=== PATIENT | male | born 1960 | race Caucasian/White ===

== ENCOUNTER 2017-08-01 08:08 | Emergency (ER) | payer OTHER ==
[~2017-08-01] VITALS: Ht 175.3 cm; Wt 77.1 kg
--- NOTE | ~2017-08-01 | CR132 ---
[facility]. [facility] A Service of [facility] & [facility] RADIOLOGY TEXT RESULTS PATIENT: MARIS BATISTA III LOCATION: SED : 62 UNIT #: [id number] AGE: [address]: Andrey Gonzalez MD SEX: M ORDER DR: [id number] [address] [address] [id number] E MR#: [id number] Acc #: [id number] NAME: MARIS BATISTA III : 1960 SEX: M STUDY DATE/TIME: 08/01/2017 9:26 UNIT: SED ROOM: STUDY DESCRIPTION: CR Forearm 2 View Lt Attending Physician: Andrey Gonzalez M.D. Ordering Physician: Andrey Gonzalez M.D. Primary Care Physician: Ren Zafar M.D. MEDICAL IMAGING REPORT This report is preliminary unless electronic signature is present. EXAM Left forearm. INDICATIONS Left forearm pain after fall from ladder today. FINDINGS Two views of the left forearm were obtained. There is a comminuted fracture involving the distal 2 cm of the radius and there is an ulnar styloid fracture. Otherwise, the bones are normal. IMPRESSION 1. Comminuted distal radius fracture. 2. Ulnar styloid fracture. Dictated by... Jonathna Butler M.D. THIS IS AN ELECTRONICALLY VERIFIED REPORT Jonathan Butler M.D. at 08/01/2017 3:38 PM FEL/jose TD: 08/01/2017 15:22 JOB #: [id number] MEDICAL IMAGING REPORT Page 1 of 1
--- NOTE | ~2017-08-01 | CR281 ---
[facility]. [facility] A Service of [facility] & [facility] RADIOLOGY TEXT RESULTS PATIENT: MARIS BATISTA III LOCATION: SED : 62 UNIT #: [id number] AGE: [address]: Andrey Gonzalez MD SEX: M ORDER DR: [id number] [address] [address] [id number] E MR#: [id number] Acc #: [id number] NAME: MARIS BATISTA III : 1960 SEX: M STUDY DATE/TIME: 08/01/2017 9:26 UNIT: SED ROOM: STUDY DESCRIPTION: CR Wrist Min 3 View Lt Attending Physician: Andrey Gonzalez M.D. Ordering Physician: Andrey Gonzalez M.D. Primary Care Physician: Ren Zafar M.D. MEDICAL IMAGING REPORT This report is preliminary unless electronic signature is present. EXAM Left wrist HISTORY Left wrist pain after fall from ladder today. FINDINGS 3 views of the left wrist were obtained. There is a comminuted fracture involving the distal 2 cm of the radius, and there is an ulnar styloid fracture. The bones are otherwise normal. IMPRESSION Comminuted distal radius fracture and ulnar styloid fracture. Dictated by... Jonathan Butler M.D. THIS IS AN ELECTRONICALLY VERIFIED REPORT Jonathan Butler M.D. at 08/01/2017 3:38 PM ARTUR/linda TD: 08/01/2017 15:26 JOB #: [id number] MEDICAL IMAGING REPORT Page 1 of 1
--- NOTE | ~2017-08-01 | CR93 ---
[facility]. [facility] A Service of [facility] & [facility] RADIOLOGY TEXT RESULTS PATIENT: MARIS BATISTA III LOCATION: SED : 62 UNIT #: [id number] AGE: [address]: Andrey Gonzalez MD SEX: M ORDER DR: [id number] [address] [address] [id number] E MR#: [id number] Acc #: [id number] NAME: MARIS BATISTA III : 1960 SEX: M STUDY DATE/TIME: 08/01/2017 9:26 UNIT: SED ROOM: STUDY DESCRIPTION: CR Elbow Min 3 Views Lt Attending Physician: Andrey Gonzalez M.D. Ordering Physician: Andrey Gonzalez M.D. Primary Care Physician: Ren Zafar M.D. MEDICAL IMAGING REPORT This report is preliminary unless electronic signature is present. EXAM Left elbow. HISTORY Left elbow pain after falling off ladder yesterday. FINDINGS AP and lateral examination of the elbow shows satisfactory articulation of the humerus with the proximal radius and ulna. There is no identifiable fracture, dislocation, joint effusion, or radiopaque foreign body in the soft tissues. IMPRESSION Normal elbow. Dictated by... Jonathan Butler M.D. THIS IS AN ELECTRONICALLY VERIFIED REPORT Jonathan Butler M.D. at 08/01/2017 3:38 PM ARTUR/linda TD: 08/01/2017 15:19 JOB #: [id number] MEDICAL IMAGING REPORT Page 1 of 1
--- NOTE | ~2017-08-01 | CT52 ---
[facility] A Service [facility] RADIOLOGY TEXT RESULTS PATIENT: MARIS BATISTA III LOCATION: SED : 62 UNIT #: [id number] AGE: [address]: Andrey Gonzalez MD SEX: M ORDER DR: [id number] [place] [id number] E MR#: [id number] Acc #: [id number] NAME: MARIS BATISTA III : 1960 SEX: M STUDY DATE/TIME: 08/01/2017 9:23 UNIT: SED ROOM: STUDY DESCRIPTION: CT Cervical Spine Wo Cont Attending Physician: Andrey Gonzalez M.D. Ordering Physician: Andrey Gonzalez M.D. Primary Care Physician: Ren Zafar M.D. MEDICAL IMAGING REPORT This report is preliminary unless electronic signature is present. EXAM CT cervical spine 08/01/2017 HISTORY 56-year-old male in the ED after head injury. Fell off ladder striking head on concrete surface yesterday. TECHNIQUE Thin-section axial CT images were obtained from the skull base through the mid portion of T2. Sagittal and coronal images were reconstructed. The CT exam was performed with one or more of the following radiation dose reduction techniques: automatic exposure control, adjustment of mA and/or kV according to patient size, and iterative reconstruction. FINDINGS No fracture or other acute osseous abnormality is demonstrated. Severe multilevel degenerative facet arthropathy throughout the cervical spine, greatest on the right at C3-4 and C4-5. Slight anterolisthesis C4-5. Advanced degenerative disc space changes at C5-6 and C6-7 including disc space narrowing and vertebral osteophyte formation. More mild degenerative disc space narrowing elsewhere throughout the cervical spine. IMPRESSION 1. No acute osseous abnormality. 2. Severe multilevel degenerative facet arthropathy, greatest on the right at C3-4 and C4-5. Slight anterolisthesis C4-5. 3. Multilevel degenerative disc disease, greatest at C5-6 and C6-7. [facility] A Service [facility] RADIOLOGY TEXT RESULTS PATIENT: MARIS BATISTA III LOCATION: [facility] #: [id number] : 62 UNIT #: [id number] AGE: [address]: Andrey Gonzalez MD SEX: M ORDER DR: Dictated by... Norbert Queen M.D. THIS IS AN ELECTRONICALLY VERIFIED REPORT Norbert Queen M.D. at 08/01/2017 3:39 PM SIMONAW/jun TD: 08/01/2017 11:18 JOB #: [id number] MEDICAL IMAGING REPORT Page 1 of 1
--- NOTE | ~2017-08-01 | CR141 ---
[facility] A Service of [facility] & [facility] RADIOLOGY TEXT RESULTS PATIENT: MARIS BATISTA III LOCATION: SED : 62 UNIT #: [id number] AGE: [address]: Andrey Gonzalez MD SEX: M ORDER DR: [id number] [address] [address] [id number] E MR#: [id number] Acc #: [id number] NAME: MARIS BATISTA III : 1960 SEX: M STUDY DATE/TIME: 08/01/2017 9:26 UNIT: SED ROOM: STUDY DESCRIPTION: CR Hand Min 3 Views Lt Attending Physician: Andrey Gonzalez M.D. Ordering Physician: Andrey Gonzalez M.D. Primary Care Physician: Ren Zafar M.D. MEDICAL IMAGING REPORT This report is preliminary unless electronic signature is present. EXAM Left hand HISTORY Left hand pain after fall from ladder today. Decreased movement in wrist. FINDINGS 3 views of the left hand were obtained. There is a comminuted fracture of the distal radius and there is a fracture through the ulnar styloid. The bones of the hand proper are normal and intact. IMPRESSION Comminuted distal radius fracture involving the distal 2 cm of the radius and ulnar styloid fracture is visible. Otherwise, the study is normal. Dictated by... Jonathan Butler M.D. THIS IS AN ELECTRONICALLY VERIFIED REPORT Jonathan Butler M.D. at 08/02/2017 7:39 AM ARTUR/cleopatra TD: 08/01/2017 15:58 JOB #: [id number] MEDICAL IMAGING REPORT Page 1 of 1
--- NOTE | ~2017-08-01 | CT71 ---
[facility] A Service [facility] RADIOLOGY TEXT RESULTS PATIENT: MARIS BATISTA III LOCATION: SED : 62 UNIT #: [id number] AGE: [address]: Andrey Gonzalez MD SEX: M ORDER DR: [id number] [place] [address] [id number] E MR#: [id number] Acc #: [id number] NAME: MARIS BATISTA III : 1960 SEX: M STUDY DATE/TIME: 08/01/2017 9:16 UNIT: SED ROOM: STUDY DESCRIPTION: CT Head Wo Contrast Attending Physician: Andrey Gonzalez M.D. Ordering Physician: Andrey Gonzalez M.D. Primary Care Physician: Ren Zafar M.D. MEDICAL IMAGING REPORT This report is preliminary unless electronic signature is present. EXAM CT head, noncontrast, 08/01/2017 HISTORY 56-year-old male in the ED after head injury. Fell off ladder yesterday striking left forehead on concrete surface. Pain. Soft tissue laceration. TECHNIQUE CT examination of the head without IV contrast. The CT exam was performed with one or more of the following radiation dose reduction techniques: automatic exposure control, adjustment of mA and/or kV according to patient size, and iterative reconstruction. COMPARISON CT head, 02/26/2016. FINDINGS Small left anterior frontal scalp contusion. No visible skull fracture. No acute intracranial abnormality is identified. Mild generalized cerebral cortical atrophy. Mild diffuse low-attenuation white matter changes are nonspecific but likely related to chronic small vessel disease. Small chronic lacunar infarct in the left lentiform nucleus. These findings are unchanged since the previous study. No evidence of intracranial hemorrhage, mass, mass effect, acute cerebral edema or progressive ventricular enlargement. IMPRESSION 1. No acute intracranial abnormality. 2. Small left anterior frontal scalp contusion. No skull fracture. [facility] A Service [facility] RADIOLOGY TEXT RESULTS PATIENT: MARIS BATISTA III LOCATION: SED : 62 UNIT #: [id number] AGE: [address]: Andrey Gonzalez MD SEX: M ORDER DR: 3. Stable diffuse chronic changes as noted above. 4. No significant change since 02/26/2016. Dictated by... Norbert Queen M.D. THIS IS AN ELECTRONICALLY VERIFIED REPORT Norbert Queen M.D. at 08/01/2017 3:39 PM SIMONAW/jun TD: 08/01/2017 11:16 JOB #: [id number] MEDICAL IMAGING REPORT Page 1 of 1
[~2017-08-01 08:08] MED LIST: CARAFATE PO; LEVAQUIN PO; LEXAPRO PO; LORTAB 10/500 T1 TAB PO; METRONIDAZOLE PO; PREVACID PO; PROTONIX PO; THIAMINE HCL100 MG PO
== END 2017-08-01 11:04 | disposition home or self-care (01) ==
LOC: SED 08:08
DX: S52.502A Unspecified fracture of the lower end of left radius, initial encounter for closed fracture (principal); S52.612A Displaced fracture of left ulna styloid process, initial encounter for closed fracture; F17.200 Nicotine dependence, unspecified, uncomplicated; W11.XXXA Fall on and from ladder, initial encounter; Y92.009 Unspecified place in unspecified non-institutional (private) residence as the place of occurrence of the external cause
CPT/HCPCS: 29125; 70450; 72125; 73080; 73090; 73110; 73130; 99284